=== PATIENT | female | born 1960 | race Caucasian/White ===

== ENCOUNTER 2017-06-11 09:19 | Outpatient (CLI) | payer OTHER ==
--- NOTE | 2017-06-11 11:44 | MMO ---
BILATERAL SCREENING MAMMOGRAMS: Comparison: 2011, 2013, 2015 This study is interpreted with the assistance of computer aided detection. FINDINGS: Heterogeneously dense glandular pattern is seen. No evidence of mass or distortion. There are a few scattered bone island appearing calcifications. No significant interval change noted. Recommend one year follow up. IMPRESSION: BIRADS 2 - benign findings. POS: ROBERT
== END 2017-06-11 09:20 | disposition home or self-care (01) ==
LOC: SCSMAMMO 09:19
PROVIDERS: ATTEND Obstetrics & Gynecology
DX: Z12.31 Encounter for screening mammogram for malignant neoplasm of breast (principal)
CPT/HCPCS: 77067; G0202

== ENCOUNTER 2018-06-12 08:47 | Outpatient (CLI) | payer OTHER ==
--- NOTE | 2018-06-12 11:04 | MMO ---
BILATERAL SCREENING MAMMOGRAM: Date: 06/12/18 HISTORY: 58-year-old female. Routine screening mammography. COMPARISON: 06/27/14, 10/31/15, 06/11/17. TECHNIQUE: CC and MLO views of both breasts are submitted for interpretation. This patient's mammogram was reviewed with the assistance of computer-aided detection. FINDINGS: The breasts are composed of heterogeneously dense fibroglandular tissue, which limits the sensitivity of mammography in the detection of underlying malignancy. Bilaterally, no suspicious dominant mass, architectural distortion, or suspicious calcification. Benign-appearing calcifications in the left an d the right breast. IMPRESSION: BIRADS 2: Benign Finding(s) RECOMMENDATION: Annual mammogram. POS: ROBERT
== END 2018-06-12 08:48 | disposition home or self-care (01) ==
LOC: SCSMAMMO 08:47
PROVIDERS: ATTEND Obstetrics & Gynecology
DX: Z12.31 Encounter for screening mammogram for malignant neoplasm of breast (principal)
CPT/HCPCS: 77067

== ENCOUNTER 2018-11-27 10:28 | Outpatient (CLI) | payer OTHER ==
--- NOTE | 2018-11-27 11:03 | ULT ---
Karyn upper quadrant ultrasound: 11/27/2018 COMPARISON: None HISTORY: Right upper quadrant pain for one week TECHNIQUE: Multiplanar grayscale sonographic imaging of the right upper quadrant provided. FINDINGS: Imaged pancreas is unremarkable. Pancreatic tail obscured by bowel gas. No focal liver lesi on or intrahepatic biliary dilatation. The common bile duct measures 5 mm, within normal limits. No gallbladder wall thickening or pericholecystic fluid. No gallstones are noted. Sonographic Dangelo sign is negative. Right kidney measures 9.9 cm in craniocaudal dimension and demonstrates no stone, hydronephrosis, or mass lesion. IMPRESSION: No acute findings.
== END 2018-11-27 10:29 | disposition home or self-care (01) ==
LOC: BICULT 10:28
PROVIDERS: ATTEND Obstetrics & Gynecology
DX: R10.11 Right upper quadrant pain (principal)
CPT/HCPCS: 76705

== ENCOUNTER 2018-12-24 07:32 | Outpatient (CLI) | payer OTHER ==
--- NOTE | 2018-12-24 10:53 | NM ---
EXAM: Nuclear medicine hepatobiliary scan: HISTORY: Right upper quadrant pain COMPARISON: None RADIOPHARMACEUTICAL: 5.4 mCi technetium 99m labeled mebrofenin intravenously. FINDINGS: There is normal opacification of the liver with excretion into the gallbladder and into the small bow el by 60 minutes. Following administration of: 8 ounces of ensure by mouth, gallbladder ejection fraction [id number]%, wi th normal being greater than 33%. IMPRESSION: Unremarkable nuclear medicine hepatic biliary scan. Normal ejection fraction.
== END 2018-12-24 07:33 | disposition home or self-care (01) ==
LOC: NM 07:32
PROVIDERS: ATTEND Physician Assistant Medical
DX: R10.11 Right upper quadrant pain (principal); R94.5 Abnormal results of liver function studies
CPT/HCPCS: 78227; A9537

== ENCOUNTER 2020-07-06 13:35 | Outpatient (CLI) | payer OTHER ==
--- NOTE | 2020-07-06 15:40 | MMO ---
Bilateral MAMMO Bilat Screen [facility]. CLINICAL HISTORY: Patient is 60 years old and is seen for screening. The patient has the following family history of breast cancer: mother, at age 46. The patient has no personal history of cancer. VIEWS: The views performed were: bilateral craniocaudal with tomosynthesis and bilateral mediolateral oblique with tomosynthesis. FILMS COMPARED: The present examination has been compared to prior imaging studies performed at [facility] on 06/24/2019, and at [facility] [place] on 10/31/2015, 06/11/2017 and 06/12/2018. This study has been interpreted with the assistance of computer-aided detection. MAMMOGRAM FINDINGS: The breasts are heterogeneously dense, which could obscure a lesion on mammography. Benign calcifications are noted bilaterally. There are no suspicious masses, suspicious calcifications, or new areas of architectural distortion. IMPRESSION: THERE IS NO MAMMOGRAPHIC EVIDENCE OF MALIGNANCY. A ROUTINE FOLLOW-UP MAMMOGRAM IN 1 YEAR IS RECOMMENDED. THE RESULTS OF THIS EXAM WERE SENT TO THE PATIENT. ACR BI-RADS Category 2 - Benign finding MAMMOGRAPHY NOTE: 1. A negative mammogram report should not delay a biopsy if a dominant of clinically suspicious mass is present. 2. Approximately 10% to 15% of breast cancers are not detected by mammography. 3. Adenosis and dense breasts may obscure an underlying neoplasm. Reported by: DON HESTER MD Electonically Signed: [id number]
== END 2020-07-06 13:36 | disposition home or self-care (01) ==
LOC: BICMAMMO 13:35
PROVIDERS: ATTEND Obstetrics & Gynecology
DX: Z12.31 Encounter for screening mammogram for malignant neoplasm of breast (principal); Z80.3 Family history of malignant neoplasm of breast
CPT/HCPCS: 77063; 77067